=== PATIENT | female | born 2000 | race American Indian/Alaskan Native ===

== ENCOUNTER 2019-05-19 23:01 | Emergency (ER) | payer MEDICAID ==
[2019-05-19] MEDS ORDERED: ACETAMINOPHEN 325 MG TAB PO ONE (23:09)
[2019-05-20 00:05] LABS: Hematocrit 38.6 % (30.3-42.9); Hemoglobin 12.6 gm/dl (10.1-14.3); Mean Corpuscular HGB Conc 33 % (30-34); Mean Corpuscular Volume 87 fl (79-97); Platelet Count 236 K/mm3 (140-440); Red Blood Count 4.47 M/mm3 (3.65-5.03); Red Cell Distribution Width 13.6 % (13.2-15.2)
[2019-05-20 00:16] LABS: Alanine Aminotransferase 14 units/L (7-56); Albumin 3.7 g/dL (3.9-5); BUN/Creatinine Ratio 14; Blood Urea Nitrogen 10 mg/dL (7-17); Calcium 8.7 mg/dL (8.4-10.2); Hemolysis Index 12
[2019-05-20 00:59] LABS: Total Cells Counted 100
[2019-05-20 01:00] LABS: Eosinophils % (Manual) 0 % (0.0-4.3); Macrocytosis Few; Monocytes % (Manual) 0 % (0.0-7.3)
[2019-05-20 01:01] LABS: Platelet Estimate Consistent w Auto
--- NOTE | 2019-05-20 01:48 | Emergency Department Report ---
ED Female HPI - General Chief complaint: Abdominal Pain Stated complaint: SEVERE CHILLS/NAUSEA/RT SIDE ABD PAIN Time Seen by Provider: 05/20/19 01:44 Source: patient Mode of arrival: Ambulatory Limitations: No Limitations - History of Present Illness Initial comments: 18-year-old -[place] female presents to the emergency room complaining of chills that started this morning. Patient admits to nausea with abdominal pain. Patient states that it feels like she is having a urinary tract infection. Patient reports increased urination. Denies any painful urination. Does admit to having a vaginal discharge with an odor. -: This morning Severity scale (0 -10): 0 Associated Symptoms: vaginal discharge, fever/chills, other (Urinary frequency) - Related Data Sexually active: Yes : 1 Para: 1 Previous Rx's Medication Instructions Recorded Last Taken Type Nitrofurantoin Warren/M-Cryst 100 mg PO Q12HR #14 capsule 05/20/19 Unknown Rx [Macrobid CAP] metroNIDAZOLE [Flagyl] 500 mg PO Q8HR #21 tablet 05/20/19 Unknown Rx Allergies Allergy/AdvReac Type Severity Reaction Status Date / Time No Known Allergies Allergy Verified 05/19/19 23:06 ED Review of Systems ROS: Stated complaint: SEVERE CHILLS/NAUSEA/RT SIDE ABD PAIN Other details as noted in HPI Comment: All other systems reviewed and negative ED Past Medical Hx - Past Medical History Previous Medical History?: No - Surgical History Past Surgical History?: Yes Additional Surgical History: x1 - Social History Smoking Status: Never Smoker Substance Use Type: None - Medications Home Medications: Home Medications Medication Instructions Recorded Confirmed Last Taken Type Nitrofurantoin Warren/M-Cryst 100 mg PO Q12HR #14 capsule 05/20/19 Unknown Rx [Macrobid CAP] metroNIDAZOLE [Flagyl] 500 mg PO Q8HR #21 tablet 05/20/19 Unknown Rx ED Physical Exam - General Limitations: No Limitations General appearance: alert, in no apparent distress - Head Head exam: Present: atraumatic, normocephalic - Eye Eye exam: Present: normal appearance - ENT ENT exam: Present: mucous membranes moist - GI/Abdominal GI/Abdominal exam: Present: soft. Absent: distended, tenderness, guarding - External exam: Present: normal external exam Speculum exam: Present: vaginal discharge Bi-manual exam: Present: normal bi-manual exam - Back Exam Back exam: Present: normal inspection - Neurological Exam Neurological exam: Present: alert, oriented X3, normal gait - Psychiatric Psychiatric exam: Present: normal affect, normal mood - Skin Skin exam: Present: warm, dry, intact, normal color. Absent: rash ED Course Vital Signs 05/19/19 05/20/19 05/20/19 23:05 01:45 04:20 Temperature 100.3 F H 100.3 F H 98.5 F Pulse Rate 126 H 120 H 92 H Respiratory 18 18 17 Rate Blood Pressure 109/91 Blood Pressure 109/91 [109/91] O2 Sat by Pulse 100 100 99 Oximetry ED Medical Decision Making - Lab Data Result diagrams: 05/19/19 23:44 05/19/19 23:44 Laboratory Tests 05/19/19 05/19/19 05/19/19 23:44 23:44 23:44 WBC 10.7 RBC 4.47 Hgb 12.6 Hct 38.6 MCV 87 MCH 28 MCHC 33 RDW 13.6 Plt Count 236 Add Manual Diff Complete Total Counted 100 Seg Neutrophils % Coin Machine Operator Seg Neuts % (Manual) 97.0 H Band Neutrophils % 0 Lymphocytes % (Manual) 2.0 L Reactive Lymphs % (Man) 0 Monocytes % (Manual) 0 Eosinophils % (Manual) 0 Basophils % (Manual) 1.0 Metamyelocytes % 0 Myelocytes % 0 Promyelocytes % 0 Blast Cells % 0 Nucleated RBC % Not Reportable Seg Neutrophils # Man 10.4 H Band Neutrophils # 0.0 Lymphocytes # (Manual) 0.2 L Abs React Lymphs (Man) 0.0 Monocytes # (Manual) 0.0 Eosinophils # (Manual) 0.0 Basophils # (Manual) 0.1 Metamyelocytes # 0.0 Myelocytes # 0.0 Promyelocytes # 0.0 Blast Cells # 0.0 WBC Morphology Not Reportable Hypersegmented Neuts Not Reportable Hyposegmented Neuts Not Reportable Hypogranular Neuts Not Reportable Smudge Cells Not Reportable Toxic Granulation Not Reportable Toxic Vacuolation Not Reportable Dohle Bodies Not Reportable Pelger-Huet Anomaly Not Reportable Missy Rods Not Reportable Platelet Estimate Consistent w auto Clumped Platelets Not Reportable Plt Clumps, EDTA Not Reportable Large Platelets Not Reportable Giant Platelets Not Reportable Platelet Satelliting Not Reportable Plt Morphology Comment Not Reportable RBC Morphology Not Reportable Dimorphic RBCs Not Reportable Polychromasia Rare Hypochromasia Not Reportable Poikilocytosis Not Reportable Anisocytosis Not Reportable Microcytosis Not Reportable Macrocytosis Few Spherocytes Not Reportable Pappenheimer Bodies Not Reportable Sickle Cells Not Reportable Target Cells Not Reportable Tear Drop Cells Not Reportable Ovalocytes Not Reportable Helmet Cells Not Reportable [place] Bodies Not Reportable [place] Rings Not Reportable Chandu Cells Not Reportable Bite Cells Not Reportable Crenated Cell Not Reportable Elliptocytes Not Reportable Acanthocytes (Spur) Not Reportable Rouleaux Not Reportable Hemoglobin C Crystals Not Reportable Schistocytes Not Reportable Malaria parasites Not Reportable Sathya Bodies Not Reportable Hem Pathologist Commnt No Sodium 135 L Potassium 3.8 Chloride 101.7 Carbon Dioxide 18 L Anion Gap 19 BUN 10 Creatinine 0.7 Estimated GFR > 60 BUN/Creatinine Ratio 14 Glucose 102 H Calcium 8.7 Total Bilirubin 0.40 AST 21 ALT 14 Alkaline Phosphatase 65 Total Protein 7.3 Albumin 3.7 L Albumin/Globulin Ratio 1.0 HCG, Qual Negative Urine Color Urine Turbidity Urine pH Ur Specific [place] Urine Protein Urine Glucose (UA) Urine Ketones Urine Blood Urine Nitrite Urine Bilirubin Urine Urobilinogen Ur Leukocyte Esterase Urine WBC (Auto) Urine RBC (Auto) U Epithel Cells (Auto) Urine Bacteria (Auto) C.trachomatis DNA (SDA) N.gonorrhoeae DNA (SDA) 05/20/19 05/20/19 01:46 Unknown WBC RBC Hgb Hct MCV MCH MCHC RDW Plt Count Add Manual Diff Total Counted Seg Neutrophils % Seg Neuts % (Manual) Band Neutrophils % Lymphocytes % (Manual) Reactive Lymphs % (Man) Monocytes % (Manual) Eosinophils % (Manual) Basophils % (Manual) Metamyelocytes % Myelocytes % Promyelocytes % Blast Cells % Nucleated RBC % Seg Neutrophils # Man Band Neutrophils # Lymphocytes # (Manual) Abs React Lymphs (Man) Monocytes # (Manual) Eosinophils # (Manual) Basophils # (Manual) Metamyelocytes # Myelocytes # Promyelocytes # Blast Cells # WBC Morphology Hypersegmented Neuts Hyposegmented Neuts Hypogranular Neuts Smudge Cells Toxic Granulation Toxic Vacuolation Dohle Bodies Pelger-Huet Anomaly Missy Rods Platelet Estimate Clumped Platelets Plt Clumps, EDTA Large Platelets Giant Platelets Platelet Satelliting Plt Morphology Comment RBC Morphology Dimorphic RBCs Polychromasia Hypochromasia Poikilocytosis Anisocytosis Microcytosis Macrocytosis Spherocytes Pappenheimer Bodies Sickle Cells Target Cells Tear Drop Cells Ovalocytes Helmet Cells [place] Bodies [place] Rings [place] Cells Bite Cells Crenated Cell Elliptocytes Acanthocytes (Spur) Rouleaux Hemoglobin C Crystals Schistocytes Malaria parasites Sathya Bodies Hem Pathologist Commnt Sodium Potassium Chloride Carbon Dioxide Anion Gap BUN Creatinine Estimated GFR BUN/Creatinine Ratio Glucose Calcium Total Bilirubin AST ALT Alkaline Phosphatase Total Protein Albumin Albumin/Globulin Ratio HCG, Qual Urine Color Yellow Urine Turbidity Clear Urine pH 6.0 Ur Specific [place] 1.011 Urine Protein <15 mg/dl Urine Glucose (UA) Neg Urine Ketones Neg Urine Blood Sm Urine Nitrite Neg Urine Bilirubin Neg Urine Urobilinogen < 2.0 Ur Leukocyte Esterase Sm Urine WBC (Auto) 16.0 H Urine RBC (Auto) 2.0 U Epithel Cells (Auto) 1.0 Urine Bacteria (Auto) 2+ C.trachomatis DNA (SDA) Not detected N.gonorrhoeae DNA (SDA) Not detected Critical care attestation.: If time is entered above; I have spent that time in minutes in the direct care of this critically ill patient, excluding procedure time. ED Disposition Clinical Impression: Bacterial vaginosis UTI (urinary tract infection) Qualifiers: Urinary tract infection type: site unspecified Hematuria presence: without hematuria Qualified Code(s): N39.0 - Urinary tract infection, site not specified Fever Qualifiers: Fever type: unspecified Qualified Code(s): R50.9 - Fever, unspecified Disposition: DC-01 TO HOME OR SELFCARE Is pt being admited?: No Does the pt Need Aspirin: No Condition: Stable Instructions: Bacterial Vaginosis (ED), Abdominal Pain (ED) Additional Instructions: Complete antibiotics as prescribed. You can check on your chlamydia and gonorrhea cultures in 5 to 7 days by bringing your picture ID to medical records in the basement of the hospital. Prescriptions: metroNIDAZOLE [Flagyl] 500 mg PO Q8HR #21 tablet Nitrofurantoin Warren/M-Cryst [Macrobid CAP] 100 mg PO Q12HR #14 capsule Referrals: PRIMARY CARE, [Primary Care Provider] - 3-5 Days KARIME FLORES MD [Staff Physician] - 3-5 Days Forms: STI Treatment and Prevention
[2019-05-20 01:51] VITALS: BP 109/91
[2019-05-20 02:08] LABS: Bacteria,Urine 2+ /HPF (Negative); Bilirubin,Urine NEG (Negative); Blood,Urine SM (Negative); Color,Urine Yellow (Yellow); Protein,Urine <15 mg/dL mg/dL (Negative); Urobilinogen,Urine < 2.0 mg/dL (<2.0)
== END 2019-05-20 04:20 | disposition home or self-care (01) ==
LOC: ED 23:01
DX: N76.0 Acute vaginitis (principal); N39.0 Urinary tract infection, site not specified; Z98.890 Other specified postprocedural states; Z79.899 Other long term (current) drug therapy
CPT/HCPCS: 36415; 80053; 81001; 84703; 85007; 85025; 87076; 87086; 87186; 87210; 87591

== ENCOUNTER 2020-08-02 12:07 | Emergency (ER) | payer MEDICAID ==
[2020-08-02 13:14] VITALS: BP 118/60
--- NOTE | 2020-08-02 14:11 | Emergency Department Report ---
ED General Adult HPI - General Chief complaint: Abdominal Pain Stated complaint: PROBLEM PASSING BOWL Time Seen by Provider: 08/02/20 13:42 Source: patient Mode of arrival: Ambulatory Limitations: No Limitations - History of Present Illness Initial comments: 20-year-old female patient with history of prior presents emergency department with complaints of ongoing constipation for several months. Patient states she has only had a bowel movement in the last week, which was earlier today. Patient states it was only a very small amount of brown stool. States she has not passed any gas since her small bowel movement. She has not seen a primary care provider for this problem. She also endorses mild urinary discomfort. Pt underwent medical last month without complications. Her menstrual cycle has not yet restarted. Denies fever, chills, abdominal pain, pelvic pain, vaginal discharge, rectal bleeding, melena, nausea, vomiting. D enies all other complaints at this time. - Related Data Previous Rx's Medication Instructions Recorded Last Taken Type Nitrofurantoin Glynn/M-Cryst 100 mg PO Q12HR #14 capsule 05/20/19 Unknown Rx [Macrobid CAP] metroNIDAZOLE [Flagyl] 500 mg PO Q8HR #21 tablet 05/20/19 Unknown Rx Docusate Sodium [Stool Softener] 250 mg PO DAILY 10 Days capsule 08/02/20 Unknown Rx Psyllium Husk [Metamucil] 30 gm PO DAILY #660 gm 08/02/20 Unknown Rx metroNIDAZOLE [Flagyl] 500 mg PO Q12HR 7 Days tab 08/02/20 Unknown Rx Allergies Allergy/AdvReac Type Severity Reaction Status Date / Time No Known Allergies Allergy Verified 08/02/20 13:15 ED Review of Systems ROS: Stated complaint: PROBLEM PASSING BOWL Other details as noted in HPI Other: GENERAL: Negative for fever, chills, weight change, anorexia, fatigue. ENT: Negative for ear pain, difficulty hearing, sore throat, nasal congestion, epistaxis. CARDIOVASCULAR: Negative for chest pain, palpitations, lower extremity swelling. PULMONARY: Negative for cough, dyspnea, wheezing, orthopnea, cyanosis. GASTROINTESTINAL: Positive constipation. GENITOURINARY: Positive for urinary discomfort. MUSCULOSKELETAL: Negative for joint pain, joint swelling, myalgias, back pain, neck pain. NEUROLOGICAL: Negative for headache, seizure, syncope, paresthesias, weakness. INTEGUMENTARY: Negative for erythema, rash, diaphoresis, laceration, ecchymosis. HEMATOLOGICAL: Negative for hemoptysis, hematemesis, hematochezia, hematuria. PSYCHIATRIC: Negative for hallucinations, suicidal ideation, homicidal ideation, anxiety, depression. ED Past Medical Hx - Past Medical History Previous Medical History?: No - Surgical History Additional Surgical History: x1 - Social History Smoking Status: Never Smoker Substance Use Type: None - Medications Home Medications: Home Medications Medication Instructions Recorded Confirmed Last Taken Type Nitrofurantoin Glynn/M-Cryst 100 mg PO Q12HR #14 capsule 05/20/19 Unknown Rx [Macrobid CAP] metroNIDAZOLE [Flagyl] 500 mg PO Q8HR #21 tablet 05/20/19 Unknown Rx Docusate Sodium [Stool Softener] 250 mg PO DAILY 10 Days capsule 08/02/20 Unknown Rx Psyllium Husk [Metamucil] 30 gm PO DAILY #660 gm 08/02/20 Unknown Rx metroNIDAZOLE [Flagyl] 500 mg PO Q12HR 7 Days tab 08/02/20 Unknown Rx ED Physical Exam - General Limitations: No Limitations - Other Other exam information: General: Awake and alert. No acute distress. Head: Atraumatic, normocephalic. Eyes: EOMI. Pupils are equal and round. Normal sclera and conjunctiva. ENT: Oral mucosa is moist. Normal pharyngeal exam. Neck: Supple. No lymphadenopathy. Pulmonary: No respiratory distress. Clear to auscultation bilaterally. Cardiac: Regular rate and rhythm. Pulses are palpable and equal bilaterally. No lower extremity cyanosis or edema. Skin: Warm and dry. No rashes. Abdomen: Soft, non-tender, non-protuberant. No guarding, rigidity, or rebound. Bowel sounds are normal. No organomegaly or masses noted. McBurney's point is nontender. Dubois sign is negative. Pelvic: Female consulting solution director (Daisha) present. Normal external inspection. Cervical os is closed. There is no cervical motion tenderness. No blood in the vaginal vault. There is a mild amount of thin white discharge. No adnexal tenderness or masses. No uterine tenderness. Back: Normal alignment. No CVA tenderness. Extremities: Symmetrical. Full range of motion intact. Neurological: Alert and oriented, appropriately interactive, no focal deficits. Psych: Cooperative. Appropriate mood and affect. Speech is evenly metered. Thoughts are logically construed. ED Course Vital Signs 05/02/21 13:12 Temperature 98.5 F Pulse Rate 69 Respiratory 20 Rate Blood Pressure 118/60 O2 Sat by Pulse 100 Oximetry ED Medical Decision Making - Lab Data Result diagrams: 08/02/20 15:52 08/02/20 15:52 - Radiology Data [facility] [address] [place] [address] Ultrasound Report Signed Patient: JHONATHAN BARRETT MR#: [id number] : 2000 Acct:[id number] Age/Sex: 20 / F ADM Date: 08/02/20 Loc: ED Attending Dr: Ordering Physician: YOSEPH BOSS Date of Service: 08/02/20 Procedure(s): US OB <= 14 weeks fetus Accession Number(s): [id number] cc: YOSEPH BOSS US OB <= 14 weeks fetus INDICATION / CLINICAL INFORMATION: (+) HCG s/p 07/22; retained products. COMPARISON: None available. FINDINGS: Uterus appears unremarkable. Endometrial stripe is not optimally demonstrated but appears to measure approximately 1 cm thickness. There is no evidence of intrauterine . Both ovaries are unremarkable. No free fluid. IMPRESSION: 1. Negative study. No intrauterine or obvious extrauterine . Signer Name: Rigoberto Rouse MD Signed: 08/02/2020 6:33 PM Workstation Name: [id number] Transcribed By: TM Dictated By: Rigoberto Rouse MD Electronically Authenticated By: Rigoberto Rouse MD Signed Date/Time: 08/02/201832 DD/ 30 TD/TT: - Medical Decision Making Differential diagnosis including but not limited to: dehydration, electrolyte abnormality, urinary tract infection, pyelonephritis, , retained products of conception, Patient presents emergency department with complaints of constipation and urinary discomfort. Patient initially reported undergoing medical over 3 weeks ago. However, when qualitative hCG returned positive, patient was asked to look up the date of the procedure, and she realized it actually took place on July 22. Quantitative hCG is 672. Ultrasound was obtained to ensur e there are no retained products of conception, which was unremarkable. Labs are otherwise unremarkable. Urinalysis is negative. Wet prep shows clue cells consistent with bacterial vaginosis. Etiology of patient's ongoing constipation is not clear; her abdominal exam is benign, bowel sounds are present throughout, and she has had a bowel movement today. Patient will be discharged home with laxatives in addition to Flagyl and encouraged to follow-up with primary care provider for further evaluation of her chronic constipation on an outpatient basis. Emphasized the importance of refraining from alcohol intake while taking Flagyl. Patient expressed understanding and is agreeable to plan of care. Dietary modifications discussed. Strict return precautions provided. Repeat exam is unremarkable and benign. History, exam, diagnostic testing, and current condition do not suggest worrisome pathology to warrant further testing, continued ED treatment, admission, or surgical evaluation at this point. Given the low probability of a significant medical illness, it would be more likely to result in harm than benefit to perform further testing at this stage. Discussed findings, presumptive diagnosis, need for follow-up and specific signs/symptoms that should prompt immediate return to the emergency department. Instructions were explained in detail to the patient in addition to giving written discharge information. Patient expressed understanding and was given the opportunity to ask questions, all of which were satisfactorily answered prior to discharge home. Case discussed with Dr. Palmer, attending emergency physician, who agrees with diagnostic work-up/plan of care. Critical care attestation.: If time is entered above; I have spent that time in minutes in the direct care of this critically ill patient, excluding procedure time. ED Disposition Clinical Impression: Bacterial vaginosis Constipation Qualifiers: Constipation type: unspecified constipation type Qualified Code(s): K59.00 - Constipation, unspecified Disposition: TO HOME OR SELFCARE Is pt being admited?: No Does the pt Need Aspirin: No Condition: Stable Instructions: Constipation, Adult, Bacterial Vaginosis, [id number], Bacterial Vaginosis (ED), Abdominal Pain (ED) Additional Instructions: Take Flagyl with food as directed. Do not consume any alcohol-containing products while taking Flagyl. Use Metamucil and Docusate as directed for constipation. Stay well-hydrated. Limit your intake of processed foods. Follow-up with primary care provider this week. Call tomorrow to schedule an appointment. See referral information below. Follow-up with production graphic designer on Monday, August 05 as scheduled. Return to the emergency department immediately for new or worsening symptoms. Prescriptions: metroNIDAZOLE [Flagyl] 500 mg PO Q12HR 7 Days tab Psyllium Husk [Metamucil] 30 gm PO DAILY #660 gm Docusate Sodium [Stool Softener] 250 mg PO DAILY 10 Days capsule Referrals: [facility] [Outside] - 3-5 Days [facility] [Outside] - 3-5 Days [facility] [Outside] - 3-5 Days CHAY ADAMS MD [Staff Physician] - 3-5 Days Forms: STI Treatment and Prevention Time of Disposition: 19:03
[2020-08-02 14:55] LABS: Bilirubin,Urine NEG (Negative); Blood,Urine MOD (Negative); Color,Urine Yellow (Yellow); Mucus,Urine 2+ /HPF; Protein,Urine <15 mg/dL mg/dL (Negative)
[2020-08-02 14:57] LABS: HCG Qualitative,Urine Positive (Negative)
[2020-08-02 16:06] LABS: Basophils % (Auto) 0.8 % (0.0-1.8); Eosinophils # (Auto) 0.3 K/mm3 (0.0-0.4); Eosinophils % (Auto) 7.2 % (0.0-4.3); Hematocrit 36.3 % (30.3-42.9); Hemoglobin 12.2 gm/dl (10.1-14.3); Lymphocytes # (Auto) 1.4 K/mm3 (1.2-5.4); Lymphocytes % (Auto) 34.4 % (13.4-35.0); Mean Corpuscular HGB Conc 34 % (30-34); Mean Corpuscular Volume 86 fl (79-97); Monocytes # (Auto) 0.5 K/mm3 (0.0-0.8); Monocytes % (Auto) 12.4 % (0.0-7.3); Platelet Count 389 K/mm3 (140-440); Red Blood Count 4.25 M/mm3 (3.65-5.03); Red Cell Distribution Width 13.9 % (13.2-15.2)
[2020-08-02 16:25] LABS: Alanine Aminotransferase 53 units/L (7-56); Albumin 4.1 g/dL (3.9-5); Blood Urea Nitrogen 9 mg/dL (7-17); Calcium 8.7 mg/dL (8.4-10.2); Hemolysis Index 3
[2020-08-02 16:26] LABS: BUN/Creatinine Ratio 18
--- NOTE | 2020-08-02 18:37 | Ultrasound Report ---
US OB <= 14 weeks fetus INDICATION / CLINICAL INFORMATION: (+) HCG s/p 07/22; retained products. COMPARISON: None available. FINDINGS: Uterus appears unremarkable. Endometrial stripe is not optimally demonstrated but appears to measure approximately 1 cm thickness. There is no evidence of intrauterine . Both ovaries are unremarkable. No free fluid. IMPRESSION: 1. Negative study. No intrauterine or obvious extrauterine . Signer Name: Rigoberto Rouse MD Signed: 08/02/2020 6:33 PM Workstation Name: [id number]
== END 2020-08-02 19:23 | disposition home or self-care (01) ==
LOC: ED 12:07
DX: K59.00 Constipation, unspecified (principal); N76.0 Acute vaginitis; B96.89 Other specified bacterial agents as the cause of diseases classified elsewhere; Z98.890 Other specified postprocedural states; Z79.899 Other long term (current) drug therapy
CPT/HCPCS: 36415; 76801; 80053; 81001; 81025; 84702; 85025; 87210

== ENCOUNTER 2021-12-15 21:53 | Emergency (ER) | payer MEDICAID ==
[2021-12-15 22:37] VITALS: BP 116/64
== END 2021-12-17 02:19 | disposition left against medical advice (07) ==
LOC: ED 21:53
DX: M25.532 Pain in left wrist (principal); M79.18 Myalgia, other site; Z53.21 Procedure and treatment not carried out due to patient leaving prior to being seen by health care provider; V87.7XXA Person injured in collision between other specified motor vehicles (traffic), initial encounter; Y93.89 Activity, other specified; Y92.488 Other paved roadways as the place of occurrence of the external cause; Y99.8 Other external cause status